=== PATIENT | female | born 2000 | race Two or more races ===

== ENCOUNTER 2025-07-12 15:19 | Emergency (ER) | payer BC ==
[~2025-07-12] VITALS: Ht 170.2 cm; Wt 102.1 kg
[2025-07-12 15:53] LABS: PLATELET COUNT (AUTO) 223 K/uL (150-450); RED BLOOD CELL COUNT(AUTO) 4.20 MIL/uL (4.0-5.2); RED CELL DISTRIBUTION WIDTH 13.0 % (11.5-15.0); WHITE BLOOD COUNT (AUTO) 6.7 K/uL (4.3-11.0)
[2025-07-12 16:01] LABS: CALCIUM, SERUM 8.0 mg/dL (8.5-10.1); CREATININE 0.7 mg/dL (0.6-1.3); SODIUM SERUM 137.0 mmol/L (136-145); UREA NITROGEN, BLOOD 20.0 mg/dL (7-18)
[2025-07-12] MEDS ORDERED: IBUPROFEN 600 MG TABLET ONE (19:01)
[2025-07-12] MEDS: IBUPROFEN 600 MG TABLET PO ONE (19:03)
[2025-07-12] MEDS ORDERED: IBUP-1490 PO (19:51)
[2025-07-12 19:58] VITALS: BP 112/79; TEMP 98.5; O2SAT 98
== END 2025-07-12 19:58 | disposition home or self-care (01) ==
LOC: ER 15:23
DX: R07.89 Other chest pain (principal); Z60.2 Problems related to living alone
CPT/HCPCS: 36415; 71045-TC; 80048-TC; 84484-TC; 85025-TC